=== PATIENT | female | born 1965 | race Caucasian/White ===

== ENCOUNTER → 2016-11-30 | Outpatient (CLI) | payer OTHER ==
[2016-11-30 09:44] LABS: HEMOGLOBIN 12.5 gm/dl (12.3-15.3); RED BLOOD COUNT 3.89 M/UL (4.00-5.10); WHITE BLOOD COUNT 10.5 K/UL (4.5-11.0)
[2016-11-30 10:23] LABS: BUN/CREATININE RATIO 22 (0-10)
== END ==
LOC: LAB 08:55
PROVIDERS: Family Medicine
DX: Z00.00 Encounter for general adult medical examination without abnormal findings (principal); E03.9 Hypothyroidism, unspecified; E78.5 Hyperlipidemia, unspecified; M54.5 Low back pain
CPT/HCPCS: 36415; 72100; 80053; 80061; 82607; 83036; 84443; 85025

== ENCOUNTER 2020-07-09 13:57 | Emergency (ER) | payer OTHER ==
[2020-07-09] MEDS ORDERED: AUGMENTIN 875-1 EACH PO (14:19)
[2020-07-09] MEDS ORDERED: ENDOCET 5-3251 EACH PO (14:19)
== END 2020-07-09 16:09 | disposition home or self-care (01) ==
LOC: ER1 13:57
DX: S51.812A Laceration without foreign body of left forearm, initial encounter (principal); W54.0XXA Bitten by dog, initial encounter; Y92.009 Unspecified place in unspecified non-institutional (private) residence as the place of occurrence of the external cause; Z23 Encounter for immunization
CPT/HCPCS: 12002; 90471; 90715; 96374; 99283; J1170

== ENCOUNTER 2020-07-19 09:39 | Emergency (ER) | payer OTHER ==
[~2020-07-19 09:39] MED LIST: AUGMENTIN 875-1 EACH PO; ENDOCET 5-3251 EACH PO
== END 2020-07-19 10:13 | disposition home or self-care (01) ==
LOC: ER1 09:39
DX: S51.851D Open bite of right forearm, subsequent encounter (principal); W54.0XXD Bitten by dog, subsequent encounter
CPT/HCPCS: 99281

== ENCOUNTER 2021-09-04 12:47 | Emergency (ER) | payer OTHER ==
[2021-09-04 13:52] LABS: HEMOGLOBIN 11.2 gm/dl (12.3-15.3); RED BLOOD COUNT 3.47 M/UL (4.00-5.10); WHITE BLOOD COUNT 11.6 K/UL (4.5-11.0)
[2021-09-04 14:14] LABS: BUN/CREATININE RATIO 13 (0-10)
[2021-09-04] MEDS ORDERED: CYCLOBENZAPRINE10 MG PO (17:14)
== END 2021-09-04 17:22 | disposition home or self-care (01) ==
LOC: ER1 12:47
PROVIDERS: Physician Assistant
DX: S16.1XXA Strain of muscle, fascia and tendon at neck level, initial encounter (principal); S39.012A Strain of muscle, fascia and tendon of lower back, initial encounter; R07.89 Other chest pain; F17.200 Nicotine dependence, unspecified, uncomplicated; V49.9XXA Car occupant (driver) (passenger) injured in unspecified traffic accident, initial encounter
CPT/HCPCS: 71260; 72125; 72131; 80053; 82550; 82553; 84484; 85025; 93005; 96374; 99284; J1885; Q9967